=== PATIENT | male | born 1980 | race Caucasian/White ===

== ENCOUNTER 2018-10-04 10:32 | Emergency (ER) | payer MEDICAID, SELFPAY ==
[2018-10-04 10:39] VITALS: BP 145/85; PULSE 84; RESP 20; TEMP 36.8; O2SAT 96
--- NOTE | 2018-10-04 12:00 | W.ED.GENAD ---
Discharge Plan Disposition Patient Disposition: HOME Condition: Stable Discharge Details Chief Complaint: Urinary Clinical Impression: Hemorrhage of corpus cavernosum or penis Primary Care Provider: Edgar Kong ED Provider: Murali Fernandez Home Meds and New Rx's Prescriptions: No Action ibuprofen 800 MG tablet 800 mg PO TID PRN PRNQty: 30 RF: 0 Discharge Instructions Instructions: Hematuria (ED) Additional Instructions: You should return immediately to the emergency department if you have any worsening of symptoms, or inability to urinate. Otherwise urology office should contact you for further testing and arrangement of follow-up appointment Referrals: Wolfgang Rodgers MD [ [facility] STAFF PHYSICIAN] - (If you do not hear from the office by Sunday please call the office for arrangement of follow-up appointment.) Discharge Data Discharge Date/Time-TO BE ENTERED AT DEPARTURE: 10/04/18 12:39 Medical Decision Making Patient presenting to the emergency department for chief complaint of hematuria and penile pain. Patient states that he was engaged in active/rough sex yesterday evening when he felt a pop and instant pain in his penis. He states that since then he has had small passage of clots and some bleeding with urination. Patient does state ongoing swelling to the right testicle that was diagnosed as but not otherwise denies testicular pain, urinary discharge beyond bleeding noted, abdominal pain or other symptoms. Physical exam shows a soft mildly tender mass above right testicle otherwise normal scrotum, normal-appearing penis with slight discomfort to palpation of shaft of penis just before the head, otherwise nondiagnostic exam. Patient does state similar episode 3 years ago which was seen by urology. Called urology and spoke with Dr. Dr. Rodgers whom stated he would put an order in for an outpatient CT imaging and follow-up with his office but just recommend strict return precautions for any inability to urinate due to clot formation. Patient was informed to stay well-hydrated and to follow with urology as stated above. Return precautions were discussed. After discussion of diagnosis and plan of care patient is no further needs, questions, or concerns and states clear understanding to return to the emergency department for any worsening symptoms. HPI General Mode of arrival: ambulatory. Date/Time Provider Initiated Documentation: 10/04/18 10:42. Limitations to Documentation: no limitations. Information obtained by: patient, RN notes reviewed and old records reviewed. History of Present Illness 38 year old M presents to the emergency department with the chief complaint of penis injury, described as moderate and similar to prior episodes, with intensity rated at 1. Quality is described as sharp, and is localized to the genitals. Patient started experiencing this day(s) (1) and it has been constant. Patient notes no other symptoms.. Related Data Home Medications Medication Instructions Recorded Confirmed ibuprofen 800 mg PO TID PRN PRN #30 tablet 04/18/14 10/04/18 Previous Rx's Medication Instructions Recorded ibuprofen 800 mg PO TID PRN PRN #30 tablet 04/18/14 Allergies Allergy/AdvReac Type Severity Reaction Status Date / Time No Known Allergies Allergy Unverified 10/04/18 10:41 General Stated Complaint: Urinary BENITO: 3 Review of Systems Constitutional Denies fever(s) Gastrointestinal Denies abdominal pain, Denies nausea and Denies vomiting Genitourinary Reports as per HPI, Reports hematuria, Reports difficulty urinating, Reports genital pain, Denies penile discharge and Reports scrotal swelling (chronic) [facility] Surgical History Biopsy, Soft Tissue (04/06/17) Social History Smoking/Tobacco Use Status: Never Alcohol Intake: current Alcohol Intake frequency: 0-2 drinks per day Drug use: Never Substance use type: does not use Do you feel safe at home: Yes Do you feel safe in your relationship?: Yes Exam Const General: cooperative, no acute distress and not ill appearing Orientation: alert, awake and oriented x3 Resp Effort & Inspection: normal respiratory effort, able to speak in complete sentences and no respiratory distress Male General Exam: No hernia and No inguinal lymphadenopathy Penis: normal penis, no ecchymosis, not edematous, not erythematous, no masses, no nodules, no swelling and no vesicles Meatus: meatus normal and no meatla discharge Scrotum: no ecchymosis, not erythematous and spermatocele on the right Testes: not enlarged, no masses, no testicular swelling and no testicular tenderness Skin General skin exam: no rashes or lesions noted Course Vital Signs Temperature 36.8 C 10/04/18 10:39 Pulse 84 10/04/18 10:39 Respiratory Rate 20 10/04/18 10:39 Blood Pressure 145/85 H 06/14/19 10:39 Pulse Oximetry 96 10/04/18 10:39 Temperature 36.8 C 10/04/18 10:39 Temperature Source Temporal Artery Scan 10/04/18 10:39 Pulse 84 10/04/18 10:39 Respiratory Rate 20 10/04/18 10:39 Respiratory Effort Non-Labored 10/04/18 10:39 Blood Pressure 145/85 H 10/04/18 10:39 Pulse Oximetry 96 10/04/18 10:39 Oxygen Delivery Method Room Air 10/04/18 10:39 Oxygen Flow Rate 0 10/04/18 10:39 Pain Level 1 10/04/18 10:39
--- NOTE | 2018-10-04 12:04 | ED.GENADUL_ITS ---
Discharge Plan Disposition Patient Disposition: HOME Condition: Stable Discharge Details Chief Complaint: Urinary Clinical Impression: Hemorrhage of corpus cavernosum or penis Primary Care Provider: Edgar Kong ED Provider: Murali Fernandez Home Meds and New Rx's Prescriptions: No Action ibuprofen 800 MG tablet 800 mg PO TID PRN PRNQty: 30 RF: 0 Discharge Instructions Instructions: Hematuria (ED) Additional Instructions: You should return immediately to the emergency department if you have any worsening of symptoms, or inability to urinate. Otherwise urology office should contact you for further testing and arrangement of follow-up appointment Referrals: Wolfgang Rodgers MD [ [facility] STAFF PHYSICIAN] - (If you do not hear from the office by Sunday please call the office for arrangement of follow-up appointment.) Discharge Data Discharge Date/Time-TO BE ENTERED AT DEPARTURE: 10/04/18 12:39 Medical Decision Making Patient presenting to the emergency department for chief complaint of hematuria and penile pain. Patient states that he was engaged in active/rough sex yesterday evening when he felt a pop and instant pain in his penis. He states that since then he has had small passage of clots and some bleeding with urination. Patient does state ongoing swelling to the right testicle that was diagnosed as but not otherwise denies testicular pain, urinary discharge beyond bleeding noted, abdominal pain or other symptoms. Physical exam shows a soft mildly tender mass above right testicle otherwise normal scrotum, normal- appearing penis with slight discomfort to palpation of shaft of penis just before the head, otherwise nondiagnostic exam. Patient does state similar ep isode 3 years ago which was seen by urology. Called urology and spoke with Dr. Dr. Rodgers whom stated he would put an order in for an outpatient CT imaging and follow-up with his office but just recommend strict return precautions for any inability to urinate due to clot formation. Patient was informed to stay well- hydrated and to follow with urology as stated above. Return precautions were discussed. After discussion of diagnosis and plan of care patient is no further needs, questions, or concerns and states clear understanding to return to the emergency department for any worsening symptoms. HPI General Mode of arrival: ambulatory . Date/Time Provider Initiated Documentation: 10/04/18 10:42 . Limitations to Documentation: no limitations . Information obtained by: patient, RN notes reviewed and old records reviewed . History of Present Illness 38 year old M presents to the emergency department with the chief complaint of penis injury, described as moderate and similar to prior episodes, with intensity rated at 1. Quality is described as sharp, and is localized to the genitals. Patient started experiencing this day(s) (1) and it has been constant. Patient notes no other symptoms.. Related Data Home Medications Medication Instructions Recorded Confirmed ibuprofen 800 mg PO TID PRN PRN #30 tablet 04/18/14 10/04/18 Previous Rx's Medication Instructions Recorded ibuprofen 800 mg PO TID PRN PRN #30 tablet 04/18/14 Allergies Allergy/AdvReac Type Severity Reaction Status Date / Time No Known Allergies Allergy Unverified 10/04/18 10:41 General Stated Complaint: Urinary BENITO: 3 Review of Systems Constitutional Denies fever(s) Gastrointestinal Denies abdominal pain, Denies nausea and Denies vomiting Genitourinary Reports as per HPI, Reports hematuria, Reports difficulty urinating, Reports genital pain, Denies penile discharge and Reports scrotal swelling (chronic) [facility] Surgical History Biopsy, Soft Tissue (04/06/17) Social History Smoking/Tobacco Use Status: Never Alcohol Intake: current Alcohol Intake frequency: 0-2 drinks per day Drug use: Never Substance use type: does not use Do you feel safe at home: Yes Do you feel safe in your relationship?: Yes Exam Const General: cooperative, no acute distress and not ill appearing Orientation: alert, awake and oriented x3 Resp Effort & Inspection: normal respiratory effort, able to speak in complete sentences and no respiratory distress Male General Exam: No hernia and No inguinal lymphadenopathy Penis: normal penis, no ecchymosis, not edematous, not erythematous, no masses, no nodules, no swelling and no vesicles Meatus: meatus normal and no meatla discharge Scrotum: no ecchymosis, not erythematous and spermatocele on the right Testes: not enlarged, no masses, no testicular swelling and no testicular tenderness Skin General skin exam: no rashes or lesions noted Course Vital Signs Temperature 36.8 C 10/04/18 10:39 Pulse 84 10/04/18 10:39 Respiratory Rate 20 10/04/18 10:39 Blood Pressure 145/85 H 10/04/18 10:39 Pulse Oximetry 96 10/04/18 10:39 Temperature 36.8 C 10/04/18 10:39 Temperature Source Temporal Artery Scan 10/04/18 10:39 Pulse 84 10/04/18 10:39 Respiratory Rate 20 10/04/18 10:39 Respiratory Effort Non-Labored 10/04/18 10:39 Blood Pressure 145/85 H 10/04/18 10:39 Pulse Oximetry 96 10/04/18 10:39 Oxygen Delivery Method Room Air 10/04/18 10:39 Oxygen Flow Rate 0 10/04/18 10:39 Pain Level 1 10/04/18 10:39
== END 2018-10-04 12:39 | disposition home or self-care (01) ==
PROVIDERS: Emergency Provider Nurse Practitioner Family; PCP Internal Medicine
DX: N48.22 Cellulitis of corpus cavernosum and penis (principal)
CPT/HCPCS: 99282

== ENCOUNTER 2018-10-11 07:00 | Outpatient (CLI) | payer MEDICAID, SELFPAY ==
--- NOTE | 2018-10-11 08:21 | DI.CT_ITS ---
SYMPTOM/DIAGNOSIS: HEMATURIA EVALUATION R31.0 CT UROGRAM: There are no prior comparison exams. Images were performed from the lung bases through the ischial tuberosities before and after IV contrast. 7-minute delayed images were also obtained. The lung bases are clear. The kidneys are normal in size and show normal parenchymal thickness and orientation. There are no renal calculi, masses or evidence of hydronephrosis. There are no collecting system filling defects. There are surgical clips in the posterior low pelvis, anterior to the sacrum. There is some deformity of the urinary bladder which also shows diffuse mild wall thickening. There is also some deformity of the prostate There is increased stool in the rectum. Moderate stool is seen elsewhere. No foal mass, adenopathy or free fluid is seen Epididymal head cysts vs spermatoceles are noted, right greater than left. The liver, gallbladder, spleen, pancreas and adrenals appear normal. There are bilateral L5 pars defects. There is slight deformity of the superior end plate of S-1 and deformity of the coccyx, presumably post traumatic. IMPRESSION: No evidence of renal or ureteral abnormality. Mild diffuse bladder wall thickening. There is also deformity of the contour of the bladder and prostate which could be post surgical.
[2018-10-11] MEDS: Omnipaque 350 MG/ML 100 ML BTL IJ (09:04)
== END 2018-10-11 07:20 ==
PROVIDERS: PCP Internal Medicine; Visit Provider Urology
DX: R31.0 Gross hematuria (principal); N32.9 Bladder disorder, unspecified; N32.89 Other specified disorders of bladder; N42.89 Other specified disorders of prostate
CPT/HCPCS: 74178; J3490

== ENCOUNTER 2018-11-11 08:22 | Day surgery (SDC) | payer MEDICAID, SELFPAY ==
[2018-11-11 08:33] VITALS: BP 120/87; PULSE 74; RESP 16; TEMP 35.6; O2SAT 97
[2018-11-11] MEDS: Lactated Ringers 1,000 ML 80 ML IV (08:59)
[2018-11-11] MEDS: ceFAZolin 1 GM/50 ML BAG IVPB (09:37)
[2018-11-11] MEDS: Bupivacaine 0.25% Pres-Free 30 ML VIAL (10:01)
[2018-11-11] MEDS: Bupivacaine LIPOSOME/PF 133 MG/10 ML VIAL IJ (10:03)
--- NOTE | 2018-11-11 10:12 | W.PM.DSUDISC ---
Discharge Plan Disposition Patient Disposition: HOME Condition: Stable Discharge Details Attending Provider: Wolfgang Rodgers Primary Care Provider: Edgar Kong Home Meds and New Rx's Prescriptions: New tramadol 50 mg tablet 50 mg PO Q6H PRN (Reason: pain) Qty: 12 RF: 0 No Action ibuprofen 800 MG tablet 800 mg PO TID PRN PRNQty: 30 RF: 0 Discharge Instructions Additional Instructions: No straining or lifting over 10 pounds for 1 week OK to shower/bathe 11/12/18 Ice pack to scrotum while awake for @ 48 hours (bag of frozen peas works well) F/U with me 1 to 2 weeks Stand Alone Forms: DSU Post op Instructions, Royal Munson (DSU) Activity:: see above Remove Dressings/Wound Care:: 24 hours Shower/Bathe:: 24 hours Diet:: As Tolerated Discharge Orders Discharge Orders: Discharge Order (Routine); Ordered 11/11/18 Ordered By: Wolfgang Rodgers DS: Diagnosis Discharge Diagnosis (1) Spermatocele: Status: Acute
[2018-11-11 10:24] VITALS: BP 135/108; PULSE 62; RESP 20; TEMP 36.6; O2SAT 99
[2018-11-11 10:29] VITALS: BP 134/99; PULSE 58; RESP 18; TEMP 36.6; O2SAT 100
[2018-11-11 10:34] VITALS: BP 129/84; PULSE 56; RESP 18; TEMP 36.6; O2SAT 100
[2018-11-11 11:35] VITALS: BP 113/73; PULSE 50; RESP 18; TEMP 36.2; O2SAT 99
--- NOTE | 2018-11-11 15:44 | ROE_ITS ---
DATE OF PROCEDURE: November 11, 2018 PREOPERATIVE DIAGNOSIS: Right spermatocele. POSTOPERATIVE DIAGNOSIS: Same. PROCEDURE: Right spermatocelectomy. SURGEON: Wolfgang Rodgers M.D. FUNERAL SERVICE LICENSEE: Zelalem Kwok ANESTHESIA: General. COMPLICATIONS: None. ESTIMATED BLOOD LOSS: Minimal. HISTORY: This is a 38-year-old gentleman who has a history of a right scrotal mass. On examination and ultrasound the mass is consistent with a spermatocele. He is symptomatic and is interested in south rgical treatment. He presents for a spermatocelectomy. OPERATIVE REPORT: The patient was brought to the Operating Room on 11/11/18. After successful induc tion of general anesthesia, he was placed in the supine position. His genitalia was prepped and drap ed. A right transverse scrotal incision was made. The incision was extended down through the dartos musc le. Once the dartos muscle was transected, we were able to deliver the testis through the incision. We then identified the tunica vaginalis and opened the tunica anterior to the testis. No significant hydrocele fluid was identified. The testis itself appeared normal, but there was a multicystic mass attached to the left epididymis. We then used sharp and blunt dissection to dissect the cystic lesion free. The point of attachment between the spermatocele and the epididymis was then cauterized. Any bleedin g points along the point of dissection were cauterized as well. Once hemostasis had been obtained, we passed the testis back within the left hemiscrotum. The dartos was closed with a running #3-0 chromic suture. The scrotal skin was closed with simple interrupted #4-0 chromic. The excised specimen was not sent to pathology, as spermatoceles are universally benign. The patient tolerated this procedure well. There were no complications. A fluff dressing and scrota l support were then applied to the wound.
== END 2018-11-11 12:25 | disposition home or self-care (01) ==
PROVIDERS: PCP Internal Medicine; Visit Provider Urology
PROC: (CPT 54840; principal; 2018-11-11 10:00)
DX: N43.41 Spermatocele of epididymis, single (principal)
CPT/HCPCS: 54840; J0131; J0690; J1100; J1200; J1885; J2250; J2405; J3010

== ENCOUNTER 2019-07-09 11:05 | Outpatient (REF) | payer MEDICAID, SELFPAY ==
[2019-07-11 09:42] LABS: HIV-1/2 Ag & Ab Screen Negative (Negative)
[2019-07-11 11:01] LABS: Syphilis Serology (RPR) Negative (Negative)
[2019-07-11 14:53] LABS: Chlamydia Result Negative (Negative); GC Result Negative (Negative)
== END 2019-07-09 11:25 ==
LOC: NCHCN 11:05
PROVIDERS: PCP Internal Medicine; Visit Provider Specialist/Technologist Athletic Trainer
DX: N50.9 Disorder of male genital organs, unspecified (principal); Z11.3 Encounter for screening for infections with a predominantly sexual mode of transmission; Z11.4 Encounter for screening for human immunodeficiency virus [HIV]
CPT/HCPCS: 87389; 87491; 87591; 86592

== ENCOUNTER 2021-11-18 17:08 | Outpatient (REF) | payer MEDICAID, SELFPAY ==
[2021-11-21 09:47] LABS: HSV Type 1 Ab, IgG Positive (Negative); HSV Type 2 Ab, IgG Negative (Negative)
[2021-11-21 10:50] LABS: Syphilis Serology (RPR) Negative (Negative)
[2021-11-21 10:58] LABS: HIV-1/2 Ag & Ab Screen Negative (Negative)
[2021-11-21 14:52] LABS: Chlamydia Result Negative (Negative); GC Result Negative (Negative)
== END 2021-11-18 17:09 | disposition home or self-care (01) ==
LOC: NCHCN 17:08
PROVIDERS: PCP Internal Medicine; Visit Provider Nurse Practitioner Family
DX: Z11.3 Encounter for screening for infections with a predominantly sexual mode of transmission (principal); Z11.4 Encounter for screening for human immunodeficiency virus [HIV]; Z11.59 Encounter for screening for other viral diseases
CPT/HCPCS: 87389; 87491; 87591; 86592; 86695; 86696

== ENCOUNTER 2022-02-14 14:08 | Outpatient (REF) | payer MEDICAID, SELFPAY ==
[2022-02-14 16:50] LABS: Abs Immature Grans 0.02 10^3/uL (0.0-0.06); Absolute Basophil Count 0.08 10^3/uL (0.0-0.2); Absolute Eosinophil Count 0.08 10^3/uL (0.0-0.7); Absolute Lymphocyte Count 2.39 10^3/uL (1.2-3.4); Absolute Monocyte Count 0.74 10^3/uL (0.1-0.8); Basophils % 1.1; Eosinophils % 1.1; HGB 15.2 g/dL (13.5-17.5); Immature Grans % 0.3; Lymphocytes % 34.1; MCH 29.7 pg (27.0-33.0); MCV 90 fL (80-95); MPV 9.5 fL (8.0-11.0); Monocytes % 10.6; Neutrophils % 52.8; Platelet Count 423 10^3/uL (130-400); RBC 5.12 10^6/uL (4.36-5.78); RDW 12.9 % (11.8-14.1); RDW-SD 42.7 fL; WBC 7.01 10^3/uL (4.4-10.8)
[2022-02-14 17:13] LABS: ALT 35 U/L (16-63); AST 30 U/L (15-37); Albumin 4.4 g/dL (3.4-5.0); Alkaline Phosphatase 61 U/L (46-116); Anion Gap 8.5 mmol/L (3-11); BUN 24 mg/dL (7-18); Bilirubin, Total 0.5 mg/dL (0.2-1.0); CO2 28.5 mmol/L (21.0-32.0); CREATININE 0.8 mg/dL (0.70-1.30); Calcium 9.6 mg/dL (8.5-10.1); Chloride 102 mmol/L (98-107); Estimated GFR 112.61 (mL/min/1.73m2); Glucose 91 mg/dL (74-106); Potassium 4.5 mmol/L (3.5-5.1); Sodium 139 mmol/L (136-145); Total Protein 7.9 g/dL (6.4-8.2)
== END 2022-02-14 14:09 | disposition home or self-care (01) ==
LOC: NCHCN 14:08
PROVIDERS: PCP Internal Medicine; Visit Provider Internal Medicine
DX: R10.11 Right upper quadrant pain (principal)
CPT/HCPCS: 80053; 85025

== ENCOUNTER → 2022-03-21 02:24 | Outpatient (CLI) | payer MEDICAID, SELFPAY ==
--- NOTE | 2022-03-21 | DI.CT_ITS ---
Exam(s) CT ABDOMEN PELVIS W EXAM: CT ABDOMEN PELVIS W CLINICAL HISTORY: RUQ PAIN R10.11 TECHNIQUE: Imaging Protocol: Axial computed tomography images with coronal and sagittal reformatted images were created and reviewed CONTRAST MATERIAL: Intravenous: Omnipaque 350 Contrast volume:100 mL Oral: Yes COMPARISON: CT CT ABDOMEN PELVIS WO/W from 10/11/2018 FINDINGS: ABDOMEN: Lung Bases: Normal where visualized. Liver: Normal density. No measurable mass. Portal, Superior Mesenteric, and Splenic Veins: Unremarkable. Gallbladder and Biliary Tract: No radiodense calculus or dilation. Pancreas: Normal density, no abnormal calcifications or inflammatory process. Spleen: Normal. Adrenals: No masses seen. Kidneys: Normal size, contour and axis. No radiodense stones or obstructive uropathy. No masses seen. Abdominal Aorta: Abdominal portion non-dilated. Mild atherosclerosis. Bowel: There is no evidence of obstruction. There is bowel wall thickening present in loops of small bowel in the left upper quadrant of the abdomen. Appendix is unremarkable. Peritoneal Cavity: No ascites, collection or mesenteric inflammatory response. No free air. Lymph Nodes: Within normal limits. Bones: Within normal limits for the patient's age. Soft Tissues: Postsurgical changes are again seen in the pelvis. PELVIS: Bladder: Symmetric distention, no gross wall thickening. There is no change in appearance of the urin noah bladder compared to the prior examination. Reproductive Organs: Unremarkable as visualized. Lymph Nodes: Within normal limits. Bones: Within normal limits for the patient's age. IMPRESSION: 1. There is bowel wall thickening seen in loops of small bowel in the left upper quadrant of the abdo men. This may reflect an enteritis. Please correlate clinically. 2. Stable postsurgical changes in the pelvis. RADIATION DOSE DELIVERED: 704.28mGy.cm Total DLP DATA REPOSITORY: All CT scans at this facility are submitted to the National Radiology Data Registry (NRDR) Dose Index Registry (DIR) with the [employer] (A[employer]). RADIATION OPTIMIZATION: All CT scans at this facility use at least one of these dose optimization te chniques: automated exposure control; mA and/or kV adjustment per patient size (includes targeted exa ms where dose is matched to clinical indication); or iterative reconstruction.
[2022-03-21] MEDS: Barium Sulfate 2% W/V-Berry Smoothie 450 ML BTL PO ×2 (09:18)
[2022-03-21] MEDS: Omnipaque 350 MG/ML 100 ML BTL IJ (11:08)
== END ==
PROVIDERS: PCP Internal Medicine; Visit Provider Internal Medicine
DX: R10.11 Right upper quadrant pain (principal)
CPT/HCPCS: 74177; J3490

== ENCOUNTER 2022-05-16 17:51 | Outpatient (REF) | payer MEDICAID, SELFPAY ==
[2022-05-16 14:36] LABS: Abs Immature Grans 0.04 10^3/uL (0.0-0.06); Absolute Lymphocyte Count 2.68 10^3/uL (1.2-3.4); Absolute Monocyte Count 0.95 10^3/uL (0.1-0.8); Absolute Neutrophil Count 6.03 10^3/uL (1.2-6.7); HCT 47.4 % (40.0-50.0); HGB 15.9 g/dL (13.5-17.5); Immature Grans % 0.4; Lymphocytes % 27.1; MCH 29.8 pg (27.0-33.0); MCHC 33.5 % (32.0-36.0); MCV 89 fL (80-95); MPV 8.7 fL (8.0-11.0); Monocytes % 9.6; Neutrophils % 60.9; Platelet Count 521 10^3/uL (130-400); RBC 5.33 10^6/uL (4.36-5.78); RDW 12.7 % (11.8-14.1); RDW-SD 41.3 fL
[2022-05-16 14:44] LABS: ESR 7 mm/hr (0-15)
[2022-05-16 14:52] LABS: ALT 35 U/L (16-63); AST 27 U/L (15-37); Albumin 4.5 g/dL (3.4-5.0); Alkaline Phosphatase 71 U/L (46-116); Anion Gap 6.3 mmol/L (3-11); BUN 18 mg/dL (7-18); Bilirubin, Total 0.6 mg/dL (0.2-1.0); CO2 30.7 mmol/L (21.0-32.0); CREATININE 0.8 mg/dL (0.70-1.30); Calcium 10.2 mg/dL (8.5-10.1); Chloride 103 mmol/L (98-107); Estimated GFR 112.61 (mL/min/1.73m2); Glucose 98 mg/dL (74-106); Potassium 5.1 mmol/L (3.5-5.1); Sodium 140 mmol/L (136-145); Total Protein 8.2 g/dL (6.4-8.2)
[2022-05-18 12:10] LABS: IgA 354 mg/dL (85-499); Interpretation (See Note); Tissue Transglutaminase IgA <1.2 U/mL (<4.0)
== END 2022-05-16 17:52 | disposition home or self-care (01) ==
LOC: NCHCN 17:51
PROVIDERS: PCP Internal Medicine; Visit Provider Family Medicine
DX: K52.9 Noninfective gastroenteritis and colitis, unspecified (principal); R10.11 Right upper quadrant pain; R19.7 Diarrhea, unspecified
CPT/HCPCS: 80053; 82784; 83516; 85652; 85025

== ENCOUNTER 2022-05-17 16:33 | Outpatient (REF) | payer MEDICAID, SELFPAY | END 2022-05-17 16:34 | disposition home or self-care (01) | LOC: NCHCN 16:33 | PROVIDERS: PCP Internal Medicine; Visit Provider Family Medicine | DX: R10.11 Right upper quadrant pain (principal); K52.9 Noninfective gastroenteritis and colitis, unspecified | CPT/HCPCS: 87329; 83630; 87177 ==